=== PATIENT | male | born 1985 | race Caucasian/White ===

== ENCOUNTER 2018-05-09 09:44 | Emergency (ER) | payer BC ==
--- NOTE | 2018-05-09 10:56 | C.PDOC ---
History Of Present Illness 33 year old male, with no significant past medical history, presents to the ED for evaluation of a sharp pain to his left upper arm which began today. Patient also reports experiencing pain to the left side of his chest, which has now progressed to the left side of his upper back. Patient also reports feeling an intermittent numbness and pulsating sensation to the right side of his head. Patient states his chest pain has resolved and denies neck pain, neck stiffness, vision change, extremity numbness/weakness at this time. Patient denies known family medical history. Time Seen by Provider: 05/09/18 10:33 Chief Complaint (Nursing): Chest Pain History Per: Patient History/Exam Limitations: no limitations Onset/Duration Of Symptoms: Hrs Current Symptoms Are (Timing): Better Quality: Sharp, "Pain" Additional History Per: Patient Past Medical History Reviewed: Historical Data, Nursing Documentation, Vital Signs Vital Signs: Last Vital Signs Temp 97.7 F 05/09/18 10:03 Pulse 80 05/09/18 10:35 Resp 18 05/09/18 10:03 BP 124/75 05/09/18 10:35 Pulse Ox 100 05/09/18 10:03 - Medical History PMH: No Chronic Diseases Surgical History: No Surg Hx Family History: States: Unknown Family Hx - Social History Hx Alcohol Use: No Hx Substance Use: No - Immunization History Hx Tetanus Toxoid Vaccination: No Hx Influenza Vaccination: Yes Hx Pneumococcal Vaccination: No Review Of Systems Eyes: Negative for: Vision Change Cardiovascular: Positive for: Chest Pain (left-sided ) Musculoskeletal: Positive for: Arm Pain (sharp, left upper arm ). Negative for: Neck Pain Neurological: Positive for: Numbness (right side of head, associated with intermittent pulsating sensation ) Physical Exam - Physical Exam Appears: Non-toxic, No Acute Distress Skin: Normal Color, Warm, Dry Head: Atraumatic, Normacephalic Eye(s): bilateral: Normal Inspection Oral Mucosa: Moist Neck: Normal ROM, No Midline Cervical Tenderness, No Paracervical Tenderness, Supple Chest: Symmetrical, No Deformity, No Tenderness Cardiovascular: Rhythm Regular, No Murmur Respiratory: Normal Breath Sounds, No Rales, No Rhonchi, No Wheezing Back: Other (paraspinal tenderness to right upper back ) Extremity: Normal ROM, No Tenderness, Capillary Refill (less than 2 seconds ) Neurological/Psych: Oriented x3, Normal Speech, Normal Cognition, Normal Sensation ED Course And Treatment - Laboratory Results Result Diagrams: 05/09/18 11:31 05/09/18 11:31 O2 Sat by Pulse Oximetry: 100 (on RA ) Pulse Ox Interpretation: Normal - Other Rad CXR X-Ray: Viewed By Me, Read By Radiologist Interpretation: Accession No. : [id number]. Patient Name / ID : HILARIA CARTER / [id number]. Exam Date : 05/09/2018 11:53:01 ( Approved ). Study Comment : Sex / Age : M / 33Y. Creator : Sharlene Carolina MD. Dictator : Sharlene Carolina MD. Subacute Nurse : Manager Trade Marketing : Sharlene Carolina MD. Approver2 : Report Date : 05/09/2018 12:22:55. My Comment : . Date of service: 05/09/2018. PROCEDURE: CHEST RADIOGRAPH, 1 VIEW. HISTORY: Chest pain. COMPARISON: None available. FINDINGS: LUNGS: The lungs are well inflated and clear. PLEURA: No pneumothorax or pleural effusion. CARDIOVASCULAR: The heart is normal in size. No aortic atherosclerotic calcifications present. OSSEOUS STRUCTURES: Within normal limits for the patient's age. VISUALIZED UPPER ABDOMEN: Normal. OTHER FINDINGS: None. IMPRESSION: No active pulmonary disease. - CT Scan/US Head CT Other Rad Studies (CT/US): Read By Radiologist, Radiology Report Reviewed CT/US Interpretation: Accession No. : [id number]. Patient Name / ID : HILARIA CARTER / [id number]. Exam Date : 05/09/2018 12:00:52 ( Approved ). Study Comment : Sex / Age : M / 33Y. Creator : Tarsha Abreu. Dictator : Sharlene Carolina MD. Subacute Nurse : Manager Trade Marketing : Sharlene Carolina MD. Approver2 : Report Date : 05/09/2018 12:04:47. My Comment : . Date of service: 05/09/2018. PROCEDURE: CT HEAD WITHOUT CONTRAST. HISTORY: intermittent numbness of the R side of head/face. COMPARISON: None available. TECHNIQUE: Axial computed tomography images were obtained through the head/brain without intravenous contrast. Radiation dose: Total exam DLP = 1116.18 mGy-cm. This CT exam was performed using one or more of the following dose reduction techniques: Automated exposure control, adjustment of the mA and/or kV according to patient size, and/or use of iterative reconstruction technique. FINDINGS: HEMORRHAGE: No intracranial hemorrhage. BRAIN: Pritchard- white matter differentiation is preserved. There is no mass, mass effect or ab normal extra-axial fluid collection. There is no territorial infarction. The midline sagittal structures are normal. VENTRICLES: The ventricles are normal in size, shape and configuration. CALVARIUM: There is no calvarial fracture or extracranial soft tissue swelling. PARANASAL SINUSES: Predominantly clear. MASTOID AIR CELLS: Predominantly clear. OTHER FINDINGS: None. IMPRESSION: No acute intracranial abnormality. If there is a persistent focal neurologic deficit and an ongoing clinical concern for acute infarction, an MRI of the brain without intravenous contrast would be a more sensitive modality for evaluation of hyperacute/acute ischemic infarction. Progress Note: EKG ordered and reviewed. On re-evaluation patient is asymptomatic. Vital are stable. No cardiovascular risk factores. Patient was given copies of all tests performed in ED and was instructed to follow up with PMD, neurologist and computer systems engineer. Patient was instructed to return to ED immediately if he feels worse. Disposition - Disposition Referrals: Gene Dougherty MD [Staff Provider] - Jalen Moraes MD [Staff Provider] - Disposition: HOME/ ROUTINE Disposition Time: 15:17 Condition: IMPROVED Additional Instructions: Follow up with PMD, Cogeneration Technician and Neurologist within 1-2 days. Return to ED if feel worse. Prescriptions: Ibuprofen [Motrin Tab] 400 mg PO Q8 #30 tab diaZEpam [Valium] 2 mg PO TID #15 tab Instructions: Chest Pain, Muscle Spasms (DC), Paresthesias (DC) Forms: [facility] ([place]akh) - Clinical Impression Clinical Impression: Chest pain, Back pain, thoracic, Paresthesias/numbness - PA / SUPER[employer]OR [employer] / Resident Statement MD/DO has reviewed & agrees with the documentation as recorded. - Scribe Statement The provider has reviewed the documentation as recorded by the Scribe (Jenifer Pisano) All medical record entries made by the Scribe were at my direction and personally dictated by me. I have reviewed the chart and agree that the record accurately reflects my personal performance of the history, physical exam, medical decision making, and the department course for this patient. I have also personally directed, reviewed, and agree with the discharge instructions and disposition.
[2018-05-09 11:41] LABS: BASO % 0.6 % (0.0-2.0); EOS # 0.2 K/uL (0.0-0.7); EOS % 3.9 % (0.0-4.0); HEMOGLOBIN 14.1 g/dL (12.0-18.0); LYMPH # 2.3 K/uL (1.0-4.3); LYMPH % 46.4 % (20.0-40.0); MEAN CELL VOLUME 80.5 fL (80.0-94.0); MEAN CORPUSCULAR HEMOGLOBIN 26.9 pg (27.0-31.0); MEAN CORPUSCULAR HGB CONC 33.4 g/dL (33.0-37.0); MEAN PLATELET VOLUME 7.7 fL (7.2-11.7); MONO # 0.6 K/uL (0.0-0.8); MONO % 11.3 % (0.0-10.0); NEUT # 1.9 K/uL (1.8-7.0); NEUT % 37.8 % (50.0-75.0); NRBC % 0.1 % (0.0-2.0); RBC 5.26 Mil/uL (4.40-5.90); RED CELL DISTRIBUTION WIDTH 13.6 % (11.5-14.5)
[2018-05-09 11:55] LABS: ALB/GLOB RATIO 1.7 (1.0-2.1); ALBUMIN 4.5 g/dL (3.5-5.0); ALT/SGPT 35 U/L (21-72); AST/SGOT 58 U/L (17-59); BLOOD UREA NITROGEN 20 mg/dL (9-20); CALCIUM 8.8 mg/dl (8.6-10.4); GFR NON-AFRICAN AMERICAN > 60
[2018-05-09 11:59] LABS: PARTIAL THROMBOPLASTIN TIME 29 SECONDS (21-34); PROTHROMBIN TIME 11.4 SECONDS (9.7-12.2)
[2018-05-09 12:04] LABS: D DIMER < 200 ng/mlDDU (0-243)
[2018-05-09 12:08] LABS: CK-MB 1.97 ng/mL (0.0-3.38)
[2018-05-09 12:08] LABS: URINE BILIRUBIN NEGATIVE (NEGATIVE); URINE BLOOD NEGATIVE (NEGATIVE); URINE CLARITY Clear (Clear); URINE COLOR Straw (YELLOW); URINE GLUCOSE (UA) NORMAL (Normal); URINE LEUKOCYTE ESTERASE NEG Leu/uL (Negative); URINE PROTEIN NEGATIVE (NEGATIVE); URINE UROBILINOGEN NORMAL mg/dL (0.2-1.0)
--- NOTE | 2018-05-09 12:17 | CT ---
Date of service: 05/09/2018 PROCEDURE: CT HEAD WITHOUT CONTRAST. HISTORY: intermittent numbness of the R side of head/face COMPARISON: None available. TECHNIQUE: Axial computed tomography images were obtained through the head/brain without intravenous contrast. Radiation dose: Total exam DLP = 1116.18 mGy-cm. This CT exam was performed using one or more of the following dose reduction techniques: Automated exposure control, adjustment of the mA and/or kV according to patient size, and/or use of iterative reconstruction technique. FINDINGS: HEMORRHAGE: No intracranial hemorrhage. BRAIN: Pritchard-white matter differentiation is preserved. There is no mass, mass effect or abnormal extra-axial fluid collection. There is no territorial infarction. The midline sagittal structures are normal. VENTRICLES: The ventricles are normal in size, shape and configuration. CALVARIUM: There is no calvarial fracture or extracranial soft tissue swelling. PARANASAL SINUSES: Predominantly clear. MASTOID AIR CELLS: Predominantly clear. OTHER FINDINGS: None. IMPRESSION: No acute intracranial abnormality. If there is a persistent focal neurologic deficit and an ongoing clinical concern for acute infarction, an MRI of the brain without intravenous contrast would be a more sensitive modality for evaluation of hyperacute/acute ischemic infarction.
--- NOTE | 2018-05-09 12:27 | RAD ---
Date of service: 05/09/2018 PROCEDURE: CHEST RADIOGRAPH, 1 VIEW HISTORY: Chest pain COMPARISON: None available. FINDINGS: LUNGS: The lungs are well inflated and clear. PLEURA: No pneumothorax or pleural effusion. CARDIOVASCULAR: The heart is normal in size. No aortic atherosclerotic calcifications present. OSSEOUS STRUCTURES: Within normal limits for the patient's age. VISUALIZED UPPER ABDOMEN: Normal. OTHER FINDINGS: None. IMPRESSION: No active pulmonary disease.
[2018-05-09 13:05] LABS: BARBITURATES, UR NEGATIVE (NEGATIVE); BENZODIAZEPINES, UR NEGATIVE (NEGATIVE); OPIATES, UR NEGATIVE (NEGATIVE); PHENCYCLIDINE, UR NEGATIVE (NEGATIVE)
[2018-05-09 14:57] VITALS: PULSE 68; RESP 18; O2SAT 100
[2018-05-09 15:28] VITALS: BP 115/70; TEMP 98.1
--- NOTE | 2018-05-12 20:24 | CARD ---
APPROVED REPORT Date of service: 05/09/2018 EKG Measurement Heart [id number] <Conclusion> Normal sinus rhythm Low voltage QRS Incomplete right bundle branch block Possible Inferior infarct, age undetermined Abnormal ECG
== END 2018-05-09 15:54 | disposition home or self-care (01) ==
LOC: C.ER 09:44
DX: R07.9 Chest pain, unspecified (principal); M54.6 Pain in thoracic spine; R20.2 Paresthesia of skin; R20.0 Anesthesia of skin
CPT/HCPCS: 70450; 71045; 80053; 81001; 82550; 82553; 84484; 85025; 85378; 85610; 85730; 93005; 99285; G0480